=== PATIENT | female | born 1960 | race Caucasian/White ===

== ENCOUNTER 2016-11-26 13:55 | Emergency (ER) | payer BC, OTHER ==
[2016-11-26 14:07] VITALS: BP 113/56
--- NOTE | 2016-11-26 14:41 | UC ---
Knee Pain HPI - HPI Summary HPI Summary: 56 yo female with left knee pain x mos getting progressively worse now swollen hurts medially pops and cracks - History of Current Complaint Chief Complaint: UCLowerExtremity Stated Complaint: KNEE PAIN Time Seen by Provider: 11/26/16 14:37 Hx Obtained From: Patient Onset/Duration: Gradual Onset, Lasting Weeks Severity Initially: Mild Severity Currently: Moderate Pain Intensity: 2 - 6+ with wt bearing Character: Dull, Aching Aggravating Factor(s): Movement, Weight Bearing, Prolonged Standing, Stairs Associated Signs And Symptoms: Positive: Swelling Able to Bear Weight: Yes - Allergies/Home Medications Allergies/Adverse Reactions: Allergies Allergy/AdvReac Type Severity Reaction Status Date / Time No Known Allergies Allergy Verified 11/26/16 14:02 PMH/Surg Hx/FS Hx/Imm Hx Previously Healthy: Yes - gastric bypass Psychological History: Depression - Surgical History Surgical History: Yes Surgery Procedure, Year, and Place: LIVER TUMOR REMOVED - 2001 [facility]/. SCAR TISSUE (ADHESIONS FROM LIVER ) REMOVED - 2003 [facility]/. ABLATION - 2004 [facility]. HAND SURGERY LEFT HAND - [facility]. GASTRIC BYPASS 12/2012 - Family History Known Family History: Positive: Other - Her father had an undiagnosed tremor disorder Negative: Cardiac Disease, Hypertension, Diabetes - Social History Alcohol Use: Daily Alcohol Amount: GLASS OF WINE Substance Use Type: None Smoking Status (MU): Former Smoker Amount Used/How Often: PACK A DAY Have You Smoked in the Last Year: No When Did the Patient Quit Smoking/Using Tobacco: 30 YEARS AGO - Immunization History Most Recent Influenza Vaccination: NEVER Most Recent Tetanus Shot: 2010 Most Recent Pneumonia Vaccination: NEVER Review of Systems Constitutional: Negative Skin: Negative Eyes: Negative ENT: Negative Respiratory: Negative Cardiovascular: Negative Gastrointestinal: Negative Genitourinary: Negative Motor: Negative Neurovascular: Negative Musculoskeletal: Arthralgia Neurological: Negative Psychological: Negative Is Patient Immunocompromised?: No All Other Systems Reviewed And Are Negative: Yes Physical Exam Triage Information Reviewed: Yes Appearance: Well-Appearing, No Pain Distress, Well-Nourished Vital Signs: Initial Vital Signs Temp 98.4 F 11/26/16 14:03 Pulse 65 11/26/16 14:03 Resp 16 11/26/16 14:03 BP 113/56 11/26/16 14:03 Pulse Ox 100 11/26/16 14:03 Vital Signs Reviewed: Yes Eyes: Positive: Conjunctiva Clear ENT: Positive: Hearing grossly normal. Negative: Nasal congestion, Nasal drainage, Tonsillar exudate, Trismus, Muffled/hoarse voice Neck: Positive: Supple, Nontender Respiratory: Positive: Lungs clear, Normal breath sounds, No respiratory distress Cardiovascular: Positive: RRR Musculoskeletal: Positive: ROM Intact, No Edema Neurological: Positive: Alert Psychological Exam: Normal Skin Exam: Normal Knee Pain Course/Dx - Differential Dx/Diagnosis Provider Diagnoses: left knee pain. suspect torn medial meniscus Discharge - Discharge Plan Condition: Stable Disposition: HOME Patient Education Materials: Meniscus Tear (ED) Referrals: Genesis Latham MD [Medical Doctor] - As Soon As Possible Additional Instructions: knee immobilizer when wt bearing ice tylenol Images Front/Back of Body, Lg ([place]): 1 - tender here, stable joint, small effusion
== END 2016-11-26 15:00 | disposition home or self-care (01) ==
LOC: UCEAST 13:55
DX: M25.562 Pain in left knee (principal); F32.9 Major depressive disorder, single episode, unspecified; Z98.84 Bariatric surgery status; Z87.891 Personal history of nicotine dependence
CPT/HCPCS: 99211; G0463

== ENCOUNTER 2017-02-05 10:40 | Day surgery (SDC) | payer OTHER ==
--- NOTE | 2017-01-19 10:56 | HP ---
HISTORY AND PHYSICAL: DATE OF ADMISSION/SURGERY: 02/05/17 DATE OF OFFICE VISIT: 01/16/17 SURGEON: Genesis Latham MD * (DICTATED BY RADHA GOMEZ) PROCEDURE: Left knee arthroscopy with partial medial meniscectomy, possible chondroplasty, possible synovectomy. CHIEF COMPLAINT: Left knee pain. HISTORY OF PRESENT ILLNESS: Ms. Hammond is a 56-year-old female who injured her left knee, suffering a left medial meniscus tear. She has failed conservative management and elected to proceed with a left knee arthroscopy with partial medial meniscectomy. PAST MEDICAL HISTORY: Tremors, anxiety, depression, and heart murmur. PAST SURGICAL HISTORY: Bariatric surgery, liver tumor removal, scar tissue removal, cholecystectomy, surgery on her left hand, and uterine ablation. CURRENT MEDICATIONS: 1. Naproxen 500 mg 1 to 2 daily as needed. 2. Lorazepam 1 mg daily. 3. Wellbutrin 150 mg daily. 4. Escitalopram 10 mg daily. 5. Multivitamin. 6. Vitamin B12. 7. Magnesium. 8. Biotin. ALLERGIES: None. FAMILY HISTORY: Heart disease, prostate cancer, diabetes. SOCIAL HISTORY: She is a 56-year-old female. She lives with her fiance. She does not smoke or use drugs. She uses occasional alcohol. REVIEW OF SYSTEMS: A complete 14-point review of systems was reviewed with the patient. It is positive for GERD and occasional palpitations. She denies history of DVT, PE, hepatitis C, HIV, or anesthesia problems. PHYSICAL EXAMINATION GENERAL: She is well developed, well nourished, in no acute distress. VITAL SIGNS: She stands 5 feet 6 inches tall, weighs 184 pounds, blood pressure is 112/62, heart rate 66. HEENT: Normocephalic, atraumatic. NECK: Supple. No palpable lymph nodes. PULMONARY: Lungs are clear to auscultation bilaterally. CARDIO: Regular rate and rhythm. Strong S1 and S2. ABDOMEN: Soft, nontender, nondistended. NEUROLOGIC: Alert and oriented x3. Cranial nerves II through XII are intact. MUSCULOSKELETAL: Left lower extremity, skin is intact. There are no open wounds or abrasions. There is no joint effusion. She has tenderness over the medial joint line. She has positive Francisca's, negative Page's. 5 to 110 degrees range of motion. She is distally neurovascularly intact. ASSESSMENT AND PLAN: Ms. Hammond is a 56-year-old female with complaints of left knee pain secondary to medial meniscus tear. She has failed conservative management and elected to proceed with left knee arthroscopy with partial medial meniscectomy, possible chondroplasty, possible synovectomy. The surgery is scheduled for 02/05/[address] Latham discussed the risks and benefits of the surgery at today's visit and all of her questions were answered. She will follow up with Dr. Latham 2 weeks after the surgery. RADHA GOMEZ [id number]/CPS #: [id number] MTDD
[~2017-02-05 10:40] MED LIST: Buffered Lidocaine 0.9% SYRIN* 5 ML/SYR SYRINGE INTRADERM ONE; Bupivacaine 0.25% SDV* 30 ML ONE; Dexamethasone IV* 4 MG/ML 1 ML (4 MG) ONE; EPINEPHRINE 1 MG/ML 1 ML VIAL ONE; Famotidine IV* 10 MG/ML 2 ML (20 mg) IV ONE; KETAMINE HCL* 50 MG/ML 10 ML VIAL ONE; Ketorolac INJ* 30 MG/ML 1 ML VIAL ONE; Lidocaine 2% PF * 5 ML VIAL ONE; Midazolam* 1 MG/ML 10 ML VIAL (10 MG) ONE; Ondansetron INJ* 2 MG/ML VIAL ONE; Propofol* 10 MG/ML 20 ML BTL IV PUSH ONE; fentaNYL* 50 MCG/ML 2 ML VIAL (100 MCG VIAL) ONE; methylPREDNISolone ACETATE 80* 80 MG/ML 1 ML VIAL ONE
[2017-02-05] MEDS ORDERED: Famotidine IV* 10 MG/ML 2 ML (20 mg) ONE (10:44)
[2017-02-05] MEDS ORDERED: ceFAZolin 2 GM PREMIX (*) 2 GM/50 ML BAG IVPB ONE (11:10)
[2017-02-05] MEDS ORDERED: fentaNYL* 50 MCG/ML 2 ML VIAL (100 MCG VIAL) ONE (11:33)
[2017-02-05] MEDS ORDERED: EPHEDrine (Pressors)* 50 MG/ML VIAL ONE (11:42)
[2017-02-05] MEDS ORDERED: oxyCODONE/Acetamin 5/325 MG* TAB PO PRN (11:58)
[2017-02-05] MEDS ORDERED: fentaNYL* 50 MCG/ML 2 ML VIAL (100 MCG VIAL) IV PRN (11:58)
[2017-02-05] MEDS ORDERED: Ondansetron INJ* 2 MG/ML VIAL IV PRN (11:58)
[2017-02-05 14:23] VITALS: BP 121/68
--- NOTE | 2017-02-06 04:15 | OP ---
OPERATIVE NOTE: DATE OF OPERATION: 02/05/17 DATE OF : 62 SURGEON: Genesis Latham MD JAVASCRIPT UI DEVELOPER: RADHA Saab Ms. did help throughout the procedure with preparation of the leg, wound retraction, manipul ation of the knee, and wound closure. ANESTHESIOLOGIST: Javad Marquez MD ANESTHESIA: General. PRE-OP DIAGNOSIS: Left knee pain with medial meniscal tear. POST-OP DIAGNOSES: Left knee medial meniscal tear, degenerative osteoarthritis. OPERATIVE PROCEDURE: Left knee arthroscopy with partial medial meniscectomy and medial chondroplasty . INDICATIONS: Stephany is a 56-year-old female, who developed the chronic onset of medial knee pain with mechanical symptoms. She failed conservative treatment. MRI confirmed a medial meniscal tear. Due to continued pain and failure of conservative treatment, she elected to undergo left knee arthro scopy with partial medial meniscectomy. Informed consent was obtained from the patient. She underst ood the risks of surgery included but were not limited to bleeding, infection, damage to nearby struc tures, continued pain, need for further surgery, retear of the meniscus, progression of arthritis or arthritis pain, stroke, heart attack, blood clot, and . She wished to proceed. SPECIMENS: None. COMPLICATIONS: None. ESTIMATED BLOOD LOSS: Less than 45 cc. INTRAOPERATIVE FINDINGS: Intraoperatively, the patient was noted to have grade 3 Outerbridge cartila ge changes in the medial and patellofemoral compartment. She had a linear-type tear in the posterior one-half of the medial meniscus, which did displace anteriorly. This involved the white-red zone ma inly. DESCRIPTION OF PROCEDURE: Ms. Hammond was identified in the preanesthesia unit. Her left lower ex tremity was marked as the operative side. Informed consent was signed and placed in the chart. The patient was taken to the operating room and placed under general anesthesia. Left lower extremity wa s prepped and draped in the usual sterile fashion. Preop time-out was made to correctly identify the patient's side and site. Appropriate perioperative antibiotics were given within 1 hour of incision . A 0.5-cm anterolateral portal incision was made with a 15 blade and carried down to the capsule. Tro car was introduced into the joint. As soon as the light and water sources were turned on, there was immediate visualization of the suprapatellar pouch. A tour of the knee joints was performed. Suprap atellar pouch had no obvious abnormality. Patellofemoral compartment showed grade 3 Outerbridge cart ilage changes of the patella with fissuring of the medial and lateral facet cartilage. Medial gutter had no loose body or plica. The medial compartment showed deep fissuring of the medial femoral cond ylar cartilage. Medial meniscus had a linear-type tear involving the posterior one-half of the media l meniscus with some anterior displacement. ACL and PCL appeared to be intact. The knee was placed in the [id number]. Lateral cartilage had no significant degeneration. The lateral meniscus had no obvious tear. Lateral gutter had no obvious abnormality. Under direct visualization, a medial portal incision was made with a 15 blade. Probe was introduced a nd a second tour of the knee joint was performed. No additional findings were noted. Medial menisca l tear was linear with anterior displacement and involved the white-red zone of the posterior 50% of the medial meniscus. Shaver and radiofrequency ablation wand were introduced into the joint and used to remove some anterior synovitis. Radiofrequency ablation wand was used to smooth any cartilage fl apping along the medial femoral condyle. Next, straight biter and shaver were used to perform partia l medial meniscectomy. A smooth border of the medial meniscus was obtained in the white-red zone. A probe was used to ensure there were no further tears or displaced fragments. The knee was copiously irrigated with sterile saline. All instruments were carefully removed. Incisions were closed using interrupted 3-0 nylon suture. Intraarticular injection of 80 mg of Depo-Medrol and 6 cc of 0.25% Ma rcaine was placed in the knee joint. The patient's incisions were covered with Xeroform, 4x4, and We bril. Geoffrey wrap and cold pack were placed over this. The patient's anesthesia was reversed without difficulty. She was taken to the PACU in stable condit ion. Intended weightbearing will be weightbearing as tolerated. Intended DVT prophylaxis will be as pirin. She will follow up within 2 weeks as an outpatient. [id number]/[facility] #: [id number]
== END 2017-02-05 13:57 | disposition home or self-care (01) ==
LOC: OR 10:40
PROVIDERS: ATTEND Orthopaedic Surgery Adult Reconstructive Orthopaedic Surgery
DX: M23.204 Derangement of unspecified medial meniscus due to old tear or injury, left knee (principal); R01.1 Cardiac murmur, unspecified; K76.0 Fatty (change of) liver, not elsewhere classified; K21.0 Gastro-esophageal reflux disease with esophagitis; F41.8 Other specified anxiety disorders; R25.1 Tremor, unspecified
CPT/HCPCS: J0690; J1040; J1100; J1885; J2250; J2405; J2704; J3010

== ENCOUNTER 2017-03-26 23:23 | Emergency (ER) | payer OTHER ==
--- OUTSIDE RECORDS SUMMARY | 2017-03-26 23:43 | XMS REPORT ---
:1960 External Reference #:[id number] [facility] [employer] [facility] Address [address] [address] Phone [phone] Care Team Providers Name Role Phone Nima Clark MD Primary Care Physician Unavailable Payers Type Date Identification Numbers Payment Provider Subscriber Health Maintenance Policy Number: [facility] Cristal Leonie Romero Organization (O) [id number] Ppo/Epo Stephany Group Number: [id number] [address] PayID: [id number] [place] [address] Medigap Part B Effective: Policy Number: ANGEL Romero 02/16/2011 [id number] Stephany Expires: 11/27/2016 PayID: [id number] [address] [address] PAVEL Laura [address] Workers Compensation Onset: 11/11/2008 Policy Number: State Kyung Bee Leonie Romero [id number] [facility] Kuldeeprosa maria Group Name: hand /wrist [address] PayID: [id number] [place] [address] Medigap Part B Expires: 02/15/2009 Policy Number: [facility] Cristal Leonie Romero [id number] Plan o Stephany PayID: [id number] [employer] [address] [place] [address] Medigap Part B Effective: Policy Number: Tristan Romero 02/16/2009 [id number] o Stephany Expires: 02/15/2010 PayID: [id number] [address] [address] PAVEL Mcgrath [address] Problems Date Description Provider Status Onset: 09/21/2015 Psychologic conversion disorder Miriam Bermudez MD Active Onset: 11/28/2016 Localized, primary osteoarthritis Genesis Latham M.D. Active Onset: 12/22/2016 Complex tear of medial mensc, current Genesis Latham M.D. Active injury, l knee, subs Onset: 12/31/2016 Abnormal involuntary movement Miriam Bermudez MD Active Onset: 02/20/2017 Current tear of medial cartilage AND/OR Genesis Latham M.D. Active meniscus of knee Family History Date Family Member(s) Problem(s) Comments General Congestive Heart Failure (CHF) General tremor Father General Stroke General Diabetes General Hypertension General Cancer Father Congestive Heart Failure (CHF) Father Diabetes Father Hypertension Mother Breast Cancer Mother Hypertension First Daughter Migraine Social History Type Date Description Comments Lives With Occupation Currently Working ETOH Use Consumes 1 glass of wine per day Smoking Patient is a former smoker Exercise Type/Frequency Exercises sporadically Allergies, Adverse Reactions, Alerts Date Description Reaction Status Severity Comments 09/21/2015 NKDA active Medications Medication Date Status Form Strength Qnty SIG Indications Ordering Provider Naproxen Active Tablets 500mg 60tabs 1 tablet M25.462 Genesis 017 with Yeison, food by M.D. mouth twice a day Lorazepam Active Tablets 1mg prn Unknown 000 Bupropion HCL Active Tablets ER 150mg prn Unknown ER (XL) 000 24HR Escitalopram Active Tablets 10mg prn Unknown Oxalate 000 Multivitamin Active Tablets once a Unknown Women 000 day Vitamin C Active Capsules 500mg 1 by Unknown 000 mouth every day Vitamin B-12 Active 1 by Unknown 000 mouth every day Magnesium Active Tablets 1 by Unknown 000 mouth every day Biotin Active Unknown 000 Oxycodone-Aceta Hx Tablets 5-325mg 45tabs 1 tabs Genesis minophen 017 - by mouth Yeison, every M.D. 017 4-6 hours as needed for pain Aspirin Ec Hx Tablets DR 325mg 14tabs take 1 Genesis 017 - tab by Yeison, mouth M.D. 018 once a day for 2 weeks Hydrocodone-Geoffrey Hx Tablets 5-325mg 45tabs 1 tab by Genesis taminophen 017 - mouth Yeison, every 6 M.D. 018 hours as needed for pain Hydrocodone-Geoffrey Hx Tablets 5-325mg 60tabs 1 or 2 M25.462 Genesis taminophen 017 - tabs by Yeison, mouth M.D. 017 every 6-8 hours as needed for pain Calcium 1000 + 00/00/0 Hx Tablets 1000-1000m once Unknown D 000 - g-Unit daily 017 Medications Administered in Office Medication Date Status Form Strength Qnty SIG Indications Ordering Provider Depomedrol Administered Injection Genesis 40MG 017 Martinez Latham Depomedrol Administered Injection Reinier 80MG 012 Martinez Carlos Vital Signs Date Vital Result Comment 03/20/2017 Height 66 inches 5'6" Weight 180.00 lb BP Systolic 116 mmHg BP Diastolic 69 mmHg Respiratory Rate 15 /min Pain Level 2 BMI (Body Mass Index) 29.0 kg/m2 02/20/2017 Height 66 inches 5'6" Weight 180.00 lb BP Systolic 110 mmHg BP Diastolic 60 mmHg Body Temperature 97.8 F Pain Level 2 BMI (Body Mass Index) 29.0 kg/m2 01/16/2017 Height 66 inches 5'6" Weight 184.00 lb BP Systolic 112 mmHg BP Diastolic 62 mmHg Respiratory Rate 18 /min Body Temperature 97.6 F Pain Level 2 BMI (Body Mass Index) 29.7 kg/m2 12/31/2016 Height 66 inches 5'6" Weight 180.12 lb Heart Rate 78 /min BP Systolic Sitting 124 mmHg BP Diastolic Sitting 80 mmHg BMI (Body Mass Index) 29.1 kg/m2 12/22/2016 Height 66 inches 5'6" Weight 184.00 lb Heart Rate 57 /min BP Systolic 99 mmHg BP Diastolic 61 mmHg Body Temperature 97.4 F BMI (Body Mass Index) 29.7 kg/m2 11/28/2016 Height 66 inches 5'6" Weight 184.00 lb Heart Rate 60 /min BP Systolic 115 mmHg BP Diastolic 72 mmHg Respiratory Rate 17 /min Body Temperature 96.0 F Pain Level 3 BMI (Body Mass Index) 29.7 kg/m2 01/11/2016 Height 65 inches 5'5" Weight 176.00 lb Heart Rate 66 /min BP Systolic 100 mmHg BP Diastolic 60 mmHg Respiratory Rate 16 /min Body Temperature 97.5 F BMI (Body Mass Index) 29.3 kg/m2 09/21/2015 Height 65 inches 5'5" Weight 165.00 lb Heart Rate 68 /min BP Systolic Sitting 120 mmHg BP Diastolic Sitting 64 mmHg Respiratory Rate 16 /min BMI (Body Mass Index) 27.5 kg/m2 02/21/2015 Height 65 inches 5'5" Weight 164.00 lb BMI (Body Mass Index) 27.3 kg/m2 12/06/2012 Height 65 inches 5'5" Weight 225.00 lb Heart Rate 58 /min BP Systolic 134 mmHg BP Diastolic 82 mmHg BMI (Body Mass Index) 37.4 kg/m2 Results Test Date Test Result H/L Range Note Bariatric Panel Post Op 12/28/2015 Ferritin 30.3 ng/mL 11-307 1 Vitamin B12 589 pg/mL 180-914 2 Folic Acid (Folate) 10.23 ng/mL >3.99 3 Vitamin D Total 25(Oh) 29.2 ng/mL Low 30-50 4 Vitamin B1 (Whole Blood) 109 nmol/L 70-180 5 Vitamin E Level 10.8 mg/L 5.5 - 17.0 6 Comp Metabolic Panel 12/28/2015 Sodium 141 mmol/L 133-145 Potassium 4.1 mmol/L 3.5-5.0 Chloride 105 mmol/L 101-111 Co2 Carbon Dioxide 31 mmol/L 22-32 Anion Gap 5 mmol/L 2-11 Glucose 87 mg/dL 70-100 Blood Urea Nitrogen 17 mg/dL 6-24 Creatinine 0.72 mg/dL 0.51-0.95 BUN/Creatinine Ratio 23.6 High 8-20 Calcium 9.4 mg/dL 8.6-10.3 Total Protein 6.5 g/dL 6.4-8.9 Albumin 4.0 g/dL 3.2-5.2 Globulin 2.5 g/dL 2-4 Albumin/Globulin Ratio 1.6 1-3 Total Bilirubin 0.50 mg/dL 0.2-1.0 Alkaline Phosphatase 61 U/L 34-104 Alt 10 U/L 7-52 Ast 14 U/L 13-39 Egfr Non- 84.4 >60 Egfr 108.6 >60 7 CBC Auto Diff 12/28/2015 White Blood Count 5.2 10^3/uL 3.5-10.8 Red Blood Count 4.20 10^6/uL 4.0-5.4 Hemoglobin 13.1 g/dL 12.0-16.0 Hematocrit 39 % 35-47 Mean Corpuscular Volume 92 fL 80-97 Mean Corpuscular Hemoglobin 31 pg 27-31 Mean Corpuscular HGB Conc 34 g/dL 31-36 Red Cell Distribution Width 13 % 10.5-15 Platelet Count 224 10^3/uL 150-450 Mean Platelet Volume 8 um3 7.4-10.4 Abs Neutrophils 3.0 10^3/uL 1.5-7.7 Abs Lymphocytes 1.9 10^3/uL 1.0-4.8 Abs Monocytes 0.3 10^3/uL 0-0.8 Abs Eosinophils 0.1 10^3/uL 0-0.6 Abs Basophils 0 10^3/uL 0-0.2 Abs Nucleated RBC 0 10^3/uL Granulocyte % 56.9 % 38-83 Lymphocyte % 35.4 % 25-47 Monocyte % 6.1 % 1-9 Eosinophil % 1.1 % 0-6 Basophil % 0.5 % 0-2 Nucleated Red Blood Cells % 0.1 Iron & Iron Binding Capacity 12/28/2015 Iron 72 g/dL 50-212 Unsaturated Iron Binding 319 g/dL Total Iron Binding Capacity 391 g/dL 250-450 % Iron Saturation 18 % 15-55 1 PT IS FASTING 2 Normal Range 180 to 914 Indeterminate Range 145 to 180 Deficient Range <145 3 PT IS FASTING 4 PT IS FASTING 5 ADDITIONAL INFORMATION This test was developed and its performance characteristics determined by [facility] in a manner consistent with CLIA requirements. This test has not been cleared or approved by the U.S. Food and Drug Administration. Test Performed by: [address] [address] Felt Hat Inspector And Packer: Kuldeep Pimentel II, M.D., Ph.D. 6 ADDITIONAL INFORMATION This test was developed and its performance characteristics determined by [facility] in a manner consistent with CLIA requirements. This test has not been cleared or approved by the U.S. Food and Drug Administration. Test Performed by: [facility] - [address] [address] Felt Hat Inspector And Packer: Kuldeep Pimentel II, M.D., Ph.D. 7 Because ethnic data is not always readily available, this report includes an eGFR for both -Americans and non- Americans. The National Kidney Disease Education Program (NKDEP) does not endorse the use of the MDRD equation for patients that are not between the ages of 18 and 70, are , have extremes of body size, muscle mass, or nutritional status, or are non- or non-. According to the National Kidney Foundation, irrespective of diagnosis, the stage of the disease is based on the level of kidney function: Stage Description GFR(mL/min/1.73 m(2)) 1 Kidney damage with normal or decreased GFR 90 2 Kidney damage with mild decrease in GFR 60-89 3 Moderate decrease in GFR 30-59 4 Severe decrease in GFR 15-29 5 Kidney failure <15 (or dialysis) Procedures Date CPT Code Description Status 02/05/2017 51056 Arthroscopy,Knee,Meniscectomy Medial Or Lateral Completed 02/05/2017 44002 Arthroscopy,Knee,Meniscectomy Medial Or Lateral Completed 12/31/2016 40851 EEG Recording Awake & Drowsy Completed 11/28/201627136 Inject/Drain Joint/Bursa Major Completed 2015 21601 EEG Recording Awake & Asleep Completed 02/27/2015 44135 Laparoscopy Cholecystectomy Completed 06/14/2014 85543 EEG Recording Awake & Asleep Completed 12/24/2012 90379 EKG, Interpretation Only Completed 12/06/2012 28296 FX Treatment Closed Phalanx Other Than Great Toe W/O Completed Manip 02/26/201160859 Inject/Drain Joint/Bursa Major Completed Encounters Type Date Location Provider CPT E/M Dx Office Visit 12/31/2016 [facility] [address] R25.9 1:30p Office Visit 12/22/2016 [facility], [address] M25.562 1:30p [facility] Henriquez M25.462 M17.12 S83.232D Office Visit 11/28/2016 8:00a [facility] M.D. 96858 M25.562 CSouth M25.462 M17.12 Office Visit 01/11/2016 10:30a [facility], [address] Z98.84 Samanta ORTIZ, FACS Office Visit 09/21/2015 3:00p [facility] [place] [address] F44.4 [facility] Office Visit 07/25/2015 4:39p [facility] Owen Mccormick 02163 F44.4 Martinez Lux Office Visit 05/27/2011 9:00a [facility] [address] 840.4 C.Ivett Henriquez Office Visit 04/10/2011 8:30a [facility] 73461 840.4 C.Ivett Henriquez Office Visit 02/26/2011 8:15a [facility] 91002 840.4 C.Ivett Henriquez Office Visit 03/11/2010 2:00p [facility] 92258 727.09 Jos Henriquez Office Visit 03/04/2010 1:45p [facility] 56430 719.41 CSouth Henriquez Plan of Care 03/20/2017 - Genesis Latham M.D.M25.562 Pain in left kneeFollow up:Follow up: As xxdaxiY31.462 Effusion, left kneeM17.12 Unilateral primary osteoarthritis, left kneeS83.232A Complex tear of medial mensc, current injury, l knee, init
[2017-03-27] MEDS ORDERED: hydrOXYzine HCL TAB* 50 MG PO ONE (01:47)
[2017-03-27] MEDS ORDERED: Ibuprofen TAB* 800 MG PO ONE (01:48)
[2017-03-27] MEDS ORDERED: Oseltamivir CAP* 75 MG CAP PO ONE (02:42)
--- NOTE | 2017-03-27 02:53 | ED ---
Errol León Angela, scribed for Emma Cox MD on 03/27/17 at 0148 . Influenza-Like Illness - HPI Summary HPI Summary: This pt is a 56 y/o female [facility] c/o body aches and cough x3 days , and rash x4 days. Pt reports she developed a fever today, with a maximum temperature of 100.6 F. Pt describes her rash as pruritic bumps that began 4 days ago. The rash is located on her arms. She denies SOB, chest pain. - History of Current Complaint Chief Complaint: EDFever Time Seen by Provider: 03/27/17 01:38 Hx Obtained From: Patient Onset/Duration: Lasting Days, Still Present Severity: Moderate Associated Signs & Symptoms: Fever, T Max - 100.6 F, Myalgia, Cough - Allergy/Home Medications Allergies/Adverse Reactions: Allergies Allergy/AdvReac Type Severity Reaction Status Date / Time No Known Allergies Allergy Verified 03/27/17 02:20 PMH/Surg Hx/FS Hx/Imm Hx Endocrine/Hematology History: Denies: Hx Diabetes, Hx Sickle Cell Disease, Hx Thyroid Disease, Hx Anemia - OK NOW Cardiovascular History: Denies: Hx Hypertension, Hx Pacemaker/ICD, Other Cardiovascular Problems/ Disorders Respiratory History: Denies: Hx Asthma, Hx Chronic Obstructive Pulmonary Disease (COPD), Other Respiratory Problems/Disorders GI History: Reports: Hx Gastroesophageal Reflux Disease, Hx Hiatal Hernia - DR. HERRERA AWARE OF, Hx Irritable Bowel - MANY YEARS AGO Denies: Hx Ulcer, Other GI Disorders History: Denies: Hx Renal Disease, Other Problems/Disorders Musculoskeletal History: Reports: Hx Arthritis - BORDERLINE IN HANDS, Hx Bursitis - PERCY SHOULDERS, Hx Tendonitis - WRISTS Denies: Other Musculoskeletal History Sensory History: Reports: Hx Contacts or Glasses - GLASSES Denies: Hx Hearing Aid Opthamlomology History: Reports: Hx Contacts or Glasses - GLASSES Neurological History: Reports: Hx Seizures - Dr. Aguilar monitoring last seizure 3 weeks ago, Other Neuro Impairments/Disorders - BENIGN TREMORS, BEING WORKED UP Psychiatric History: Reports: Hx Anxiety, Hx Depression, Hx Panic Disorder - PANIC ATTACKS TAKES MEDS - Surgical History Surgery Procedure, Year, and Place: LIVER TUMOR REMOVED - 2001 [facility]/. SCAR TISSUE (ADHESIONS FROM LIVER ) REMOVED - 2003 [employer]/. ABLATION - 2004 [facility] [employer] ENDOMETRIAL. HAND SURGERY LEFT HAND - [facility]. GASTRIC BYPASS 12/2012. GALLBLADDER 2016 Hx Anesthesia Reactions: Yes - NAUSEA Infectious Disease History: No Infectious Disease History: Reports: Hx Shingles - LAST NOVEMBER Denies: Hx Hepatitis, Hx Human Immunodeficiency Virus (HIV), History Other Infectious Disease, Traveled Outside the [place] in Last 30 Days - Family History Known Family History: Positive: Other - Her father had an undiagnosed tremor disorder Negative: Cardiac Disease, Hypertension, Diabetes - Social History Alcohol Use: Daily Alcohol Amount: GLASS OF WINE Substance Use Type: Reports: None Hx Tobacco Use: Yes Smoking Status (MU): Former Smoker Amount Used/How Often: PACK A DAY Have You Smoked in the Last Year: No Review of Systems Positive: Fever Negative: Chest Pain Positive: Cough. Negative: Shortness Of Breath Positive: Myalgia Positive: Rash All Other Systems Reviewed And Are Negative: Yes Physical Exam - Summary Physical Exam Summary: VITAL SIGNS: Reviewed. GENERAL: Patient is a well-developed and nourished female who is lying comfortable in the stretcher. Patient is not in any acute respiratory distress. HEAD AND FACE: No signs of trauma. No ecchymosis, hematomas or skull depressions. No sinus tenderness. EYES: PERRLA, EOMI x 2, No injected conjunctiva, no nystagmus. EARS: Hearing grossly intact. Ear canals and tympanic membranes are within normal limits. MOUTH: Oropharynx within normal limits. NECK: Supple, trachea is midline, no adenopathy, no JVD, no carotid bruit, no c- spine tenderness, neck with full ROM. CHEST: Symmetric, no tenderness at palpation LUNGS: Clear to auscultation bilaterally. No wheezing or crackles. CVS: Regular rate and rhythm, S1 and S2 present, no murmurs or gallops appreciated. ABDOMEN: Soft, non-tender. No signs of distention. No rebound no guarding, and no masses palpated. Bowel sounds are normal. EXTREMITIES: FROM in all major joints, no edema, no cyanosis or clubbing. NEURO: Alert and oriented x 3. No acute neurological deficits. Speech is normal and follows commands. SKIN: Dry and warm. Mild macular vesicular rash over both arms consistent with dermatitis. Triage Information Reviewed: Yes Vital Signs On Initial Exam: Initial Vitals Temp Pulse Resp BP Pulse Ox 99.8 F 63 18 132/75 100 03/26/17 23:29 03/26/17 23:29 03/26/17 23:29 03/26/17 23:29 03/26/17 23:29 Vital Signs Reviewed: Yes Diagnostics - Vital Signs Vital Signs Temp Pulse Resp BP Pulse Ox 03/26/17 23:29 99.8 F 63 18 132/75 100 - Laboratory Lab Statement: Any lab studies that have been ordered have been reviewed, and results considered in the medical decision making process. Flu Symptom Course/Dx - Course Assessment/Plan: This pt is a 56 y/o female presenting to [facility] c/o body aches and cough x3 days, and rash x4 days. Pt reports she developed a fever today, with a maximum temperature of 100.6 F. Pt describes her rash as pruritic bumps that began 4 days ago. The rash is located on her arms. She denies SOB, chest pain. In the ED course the pt was given Motrin and Atarax. Influenza B is positive. Influenza A is negative. Pt will be discharged home with prescription for Clobetasol ointment, Vistaril, Motrin, and Tamiflu. She is advised to follow up with her PCP. Pt was also instructed to return to the ED for any worsening symptoms. She understands and agrees. - Diagnoses Provider Diagnoses: Influenza B, Contact dermatitis Discharge - Discharge Plan Condition: Stable Disposition: HOME Prescriptions: Clobetasol 0.05% OINT* 1 applic TOPICAL BID #1 tube hydrOXYzine PAMOATE CAP* [Vistaril CAP*] 50 mg PO Q6HR PRN #20 cap PRN Reason: Itching Ibuprofen TAB* [Motrin TAB* 800 MG] 800 mg PO Q6H PRN #30 tab PRN Reason: Fever/Pain Oseltamivir CAP* [Tamiflu CAP*] 75 mg PO BID #10 cap Patient Education Materials: Contact Dermatitis (ED), Influenza (ED) Referrals: Nima Clark MD [Primary Care Provider] - 3 Days Additional Instructions: Please follow up with your primary care provider. RETURN TO EMERGENCY DEPARTMENT FOR ANY NEW OR WORSENING SYMPTOMS. The documentation as recorded by the Errol white Angela accurately reflects the service I personally performed and the decisions made by , Emma Cox MD.
[2017-03-27 03:02] VITALS: BP 118/70
== END 2017-03-27 03:01 | disposition home or self-care (01) ==
LOC: ED 23:23
DX: J10.1 Influenza due to other identified influenza virus with other respiratory manifestations (principal); L25.9 Unspecified contact dermatitis, unspecified cause
CPT/HCPCS: 87502; 99282; A9270-GY

== ENCOUNTER 2017-09-09 14:00 | Emergency (ER) | payer OTHER ==
[2017-09-09 14:39] LABS: ABS Basophils 0 10^3/ul (0-0.2); ABS Eosinophils 0.1 10^3/ul (0-0.6); ABS Lymphocytes 1.5 10^3/ul (1.0-4.8); ABS Monocytes 0.3 10^3/ul (0-0.8); ABS Neutrophils 2.8 10^3/ul (1.5-7.7); ABS Nucleated RBC 0 10^3/ul; Eosinophil % 2.5 % (0-6); Hematocrit 37 % (35-47); Hemoglobin 12.7 g/dl (12.0-16.0); Lymphocyte % 32.2 % (25-47); Mean Corpuscular HGB Conc 34 g/dl (31-36); Mean Corpuscular Hemoglobin 32 pg (27-31); Mean Corpuscular Volume 93 fL (80-97); Mean Platelet Volume 6.7 um3 (7.4-10.4); Nucleated Red Blood Cells % 0.1; Platelet Count 211 10^3/ul (150-450); Red Blood Count 3.97 10^6/ul (4.00-5.40); Red Cell Distribution Width 14 % (10.5-15); White Blood Count 4.8 10^3/ul (3.5-10.8)
[2017-09-09 14:58] LABS: EGFR Non-African American 85.2 (>60)
[2017-09-09 17:30] LABS: Urine Appearance Cloudy; Urine Blood Negative (Negative); Urine Color Yellow; Urine Ketones Negative (Negative); Urine Protein Negative (Negative); Urine Red Blood Cell 1+(3-5/hpf) (Absent); Urine Specific Gravity 1.021 (1.010-1.030); Urine Urobilinogen Negative (Negative); Urine White Blood Cell Trace(0-5/hpf) (Absent)
[2017-09-09] MEDS ORDERED: Al Hydrox/Mg Hydrox/Simet LIQ* 30 ML UDC PO ONE (17:53)
[2017-09-09] MEDS ORDERED: Lidocaine 2% VISCOUS* 15 ML UDC PO ONE (17:53)
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
[2017-09-09] MEDS ORDERED: Ondansetron ODT TAB* 4 MG PO ONE (17:55)
[2017-09-09] MEDS ORDERED: Morphine VIAL* 4 MG/ML VIAL (1 ml vial) IV ONE (17:55)
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
[2017-09-09] MEDS ORDERED: Morphine VIAL* 10 MG/ML 1 ML VIAL ONE (18:08)
[2017-09-09] MEDS: Morphine VIAL* 10 MG/ML 1 ML VIAL IV ONE ×3 (18:14→18:50)
[2017-09-09 20:11] VITALS: BP 162/92
== END 2017-09-09 20:09 | disposition short-term general hospital (02) ==
LOC: ED 14:00
DX: S36.209A Unspecified injury of unspecified part of pancreas, initial encounter (principal); V89.2XXA Person injured in unspecified motor-vehicle accident, traffic, initial encounter; Y92.9 Unspecified place or not applicable; D25.9 Leiomyoma of uterus, unspecified; R00.1 Bradycardia, unspecified; F41.0 Panic disorder [episodic paroxysmal anxiety]; Z90.49 Acquired absence of other specified parts of digestive tract; Z98.84 Bariatric surgery status; Z79.899 Other long term (current) drug therapy; Z87.891 Personal history of nicotine dependence
CPT/HCPCS: 36415; 74176; 80053; 81003; 81015; 83605; 83690; 85025; 87086; 93005; 96374; 99285; A9270-GY; J2270